=== PATIENT | female | born 1935 | race African-American/Black ===

== ENCOUNTER 2017-03-28 11:53 | Inpatient (IN) ==
[2017-03-28 14:28] LABS: Basophils # 0.1 10*3/uL (0.0-0.2); Basophils % 0.9 % (0.0-0.8); Eosinophils # 0.1 10*3/uL (0.0-0.87); Eosinophils % 1.5 % (0.00-10.9); Hematocrit 44.7 VOL% (35.7-47.0); Hemoglobin 14.2 GM/DL (12.0-16.0); Immature Granulocytes % 0.3 %; Immature Granulocytes Absolute 0.03 #; Lymphocytes # 2.1 10*3/uL (1.4-4.0); Lymphocytes % 23.2 % (21.3-54.2); Mean Corpuscular HGB Conc 31.8 GM/DL (32-36); Mean Corpuscular Hemoglobin 26 PG (27-34); Mean Corpuscular Volume 82.8 FL (87-102); Monocytes # 0.6 10*3/uL (0.11-0.8); Monocytes % 6.5 % (1.7-12.7); Neutrophils # 6.2 10*3/uL (1.4-7.4); Neutrophils % 67.6 % (38.7-73.9); Platelet Count 296 T/CUMM (130-400); Red Cell Distribution Width 15.2 % (9.3-17.3); White Blood Count 9.1 T/CUMM (4-12)
[2017-03-28 14:36] LABS: PT Patient Result 10.2 SECS
[2017-03-28 14:56] LABS: Troponin I Only < 0.015 NG/ML (0.00-0.045)
[2017-03-28 15:07] LABS: Albumin 3.7 G/DL (3.4-5.0); Bilirubin,Total 0.7 MG/DL (0.2-1.0); Osmolality,Calculated 279.3 MOS/KG (273-304); Potassium 4.6 MMOL/L (3.5-5.1); Total Protein 7.3 G/DL (6.4-8.3)
[2017-03-28 15:13] LABS: Apearance,Urine CLEAR (Clear); Bilirubin,Urine Negative (Negative); Blood, Urine Small mg/dL (Negative); Glucose,Urine (UA) Negative (Negative); Ketones,Urine Negative (Negative); Mucus,Urine Occasional /LPF (Occasional); Nitrite,Urine Negative (Negative); Protein,Urine Negative; RBC,Urine 1 /HPF (0-4); Urine Color Yellow (Yellow); Urine Specific Gravity 1.014 (1.001-1.035); Urine Urobilinogen < 2.0 EU/DL (0.2-1.0); WBC,Urine <1 /HPF (0-6)
[2017-03-28] MEDS ORDERED: DEXTROSE 50% 25 GM/50 ML VIAL IV STA (15:14)
[2017-03-28] MEDS ORDERED: DEXTROSE 50% 25 GM/50 ML SYRINGE IV ONE (15:16)
[2017-03-28] MEDS ORDERED: DEXTROSE 50% 25 GM/50 ML VIAL IV PRN (16:08)
[2017-03-28] MEDS ORDERED: diphenhydrAMINE CAP 25 MG CAPSULE PO PRN (16:08)
[2017-03-28] MEDS ORDERED: ACETAMINOPHEN 325 MG TABLET PO PRN (16:08)
[2017-03-28] MEDS ORDERED: MORPHINE 2 MG/1 ML SYRINGE IV PRN (16:08)
[2017-03-28] MEDS ORDERED: LABETALOL 20 MG/4 ML SYRINGE IV PRN (16:08)
[2017-03-28] MEDS ORDERED: guaiFENesin/DM ER 600-30 MG TABLET PO PRN (16:08)
[2017-03-28] MEDS ORDERED: GLUCAGON 1 MG VIAL IM PRN (16:08)
[2017-03-28] MEDS ORDERED: DOCUSATE SODIUM 100 MG CAPSULE PO PRN (16:08)
[2017-03-28] MEDS ORDERED: ONDANSETRON 4 MG/2 ML VIAL IV PRN (16:08)
[2017-03-28] MEDS ORDERED: PANTOPRAZOLE 40 MG TABLET PO SCH (16:30)
[2017-03-28] MEDS ORDERED: CLOPIDOGREL 75 MG TABLET PO SCH (16:30)
[2017-03-28 17:06] LABS: Risk Ratio 2.79; VLDL CHOLESTEROL 23.4 MG/DL
[2017-03-28] MEDS: INSULIN LISPRO 100 UNIT/ML SUBCUT SCH (21:02)
[2017-03-28] MEDS: SODIUM CHLORIDE 0.9% 1,000 ML IV SCH (21:31)
[2017-03-28] MEDS: ASPIRIN EC 81 MG TABLET PO SCH (21:39)
[2017-03-28] MEDS: PANTOPRAZOLE 40 MG TABLET PO SCH (21:40)
[2017-03-28] MEDS: amLODIPine 10 MG TABLET PO SCH (21:40)
[2017-03-28] MEDS: CLOPIDOGREL 75 MG TABLET PO SCH (21:40)
[2017-03-28] MEDS: ATORVASTATIN 40 MG TABLET PO SCH (21:40)
[2017-03-28] MEDS: glipiZIDE 5 MG TABLET PO SCH (21:40)
[2017-03-29] MEDS: SODIUM CHLORIDE 0.9% 1,000 ML IV SCH ×2 (06:05→09:31)
[2017-03-29] MEDS: CLOPIDOGREL 75 MG TABLET PO SCH (09:26)
[2017-03-29] MEDS: amLODIPine 10 MG TABLET PO SCH (09:26)
[2017-03-29] MEDS: glipiZIDE 5 MG TABLET PO SCH (09:26)
[2017-03-29] MEDS: PANTOPRAZOLE 40 MG TABLET PO SCH (09:27)
[2017-03-29] MEDS: ASPIRIN EC 81 MG TABLET PO SCH (09:27)
[2017-03-29] MEDS: INSULIN LISPRO 100 UNIT/ML SUBCUT SCH ×2 (09:31→17:07)
[2017-03-29] MEDS ORDERED: ZINC OXIDE PASTE 113 GM TUBE TOP PRN (14:18)
[2017-03-29] MEDS ORDERED: TUBERCULIN SKIN TEST 0.1 ML SYRINGE INTRADERM ONE (16:00)
[2017-03-29] MEDS: ATORVASTATIN 40 MG TABLET PO SCH (21:18)
[2017-03-30] MEDS: INSULIN LISPRO 100 UNIT/ML SUBCUT SCH ×2 (08:06→16:20)
[2017-03-30] MEDS: CLOPIDOGREL 75 MG TABLET PO SCH (09:16)
[2017-03-30] MEDS: glipiZIDE 5 MG TABLET PO SCH (09:16)
[2017-03-30] MEDS: amLODIPine 10 MG TABLET PO SCH (09:16)
[2017-03-30] MEDS: ASPIRIN EC 81 MG TABLET PO SCH (09:17)
[2017-03-30] MEDS: PANTOPRAZOLE 40 MG TABLET PO SCH (09:17)
[2017-03-30] MEDS ORDERED: glipiZIDE 5 MG TABLET PO SCH (16:30)
[2017-03-30] MEDS: ATORVASTATIN 40 MG TABLET PO SCH (21:27)
[2017-03-31] MEDS ORDERED: glipiZIDE 5 MG TABLET PO SCH (07:30)
[2017-03-31] MEDS: INSULIN LISPRO 100 UNIT/ML SUBCUT SCH (09:12)
[2017-03-31] MEDS: CLOPIDOGREL 75 MG TABLET PO SCH (09:13)
[2017-03-31] MEDS: ASPIRIN EC 81 MG TABLET PO SCH (09:13)
[2017-03-31] MEDS: amLODIPine 10 MG TABLET PO SCH (09:13)
[2017-03-31] MEDS: PANTOPRAZOLE 40 MG TABLET PO SCH (09:13)
[2017-03-31] MEDS ORDERED: LOSARTAN 25 MG TABLET PO SCH (09:30)
[2017-03-31 10:12] VITALS: BP 163/72
== END 2017-03-31 10:56 | disposition swing bed (61) | DRG 123 ==
LOC: N.ED 11:53 → SUATTDRO 16:08 → N.EDINP 16:08 → N.4E 18:12
PROVIDERS: ADMIT Internal Medicine; ATTEND Hospitalist

== ENCOUNTER 2018-05-29 11:58 | Inpatient (IN) ==
[2018-05-29] MEDS ORDERED: NITROGLYCERIN 2% OINT 1 INCH/GM PACK TOP STA (12:37)
[2018-05-29] MEDS ORDERED: ASPIRIN 325 MG TABLET PO STA (12:37)
[2018-05-29 13:07] LABS: INR 0.9; PT Patient Result 9.8 SECS; Partial Thromboplastin Time 24.9 SECS (0-40)
[2018-05-29 13:10] LABS: Albumin 3.4 G/DL (3.4-5.0); Basophils # 0.1 10*3/uL (0.0-0.2); Basophils % 0.4 % (0.0-0.8); Bilirubin,Total 0.5 MG/DL (0.2-1.0); Calcium 9.3 MG/DL (8.5-10.1); Eosinophils % 0.2 % (0.00-10.9); Immature Granulocytes % 0.6 %; Immature Granulocytes Absolute 0.11 #; Lymphocytes # 1.5 10*3/uL (1.4-4.0); Lymphocytes % 8.5 % (21.3-54.2); Mean Corpuscular HGB Conc 27.9 GM/DL (32-36); Mean Corpuscular Hemoglobin 20 PG (27-34); Mean Corpuscular Volume 69.8 FL (87-102); Mean Platelet Volume 9.5 FL (9.6-12.0); Monocytes # 1.3 10*3/uL (0.11-0.8); Monocytes % 7.8 % (1.7-12.7); Neutrophils # 14.2 10*3/uL (1.4-7.4); Neutrophils % 82.5 % (38.7-73.9); Osmolality,Calculated 283.1 MOS/KG (273-304); Platelet Count 554 T/CUMM (130-400); Potassium 4.1 MMOL/L (3.5-5.1); Red Blood Count 4.01 MC/CUMM (3.8-5.5); Red Cell Distribution Width 19.4 % (9.3-17.3); Total Protein 7.2 G/DL (6.4-8.3); White Blood Count 17.2 T/CUMM (4-12)
[2018-05-29 13:19] LABS: Hematocrit 27.3 VOL% (35.7-47.0); Hemoglobin 7.8 GM/DL (12.0-16.0)
[2018-05-29 13:31] LABS: Anisocytosis 1+; Hypochromasia 2+
[2018-05-29 13:32] LABS: Platelet Estimate Increased
[2018-05-29 13:33] LABS: Giant Platelets Few; Ovalocytes 1+; Polychromasia Slight; Schistocytes Few
[2018-05-29 14:11] LABS: % Iron Saturation 3.6 % (18-50); Ferritin 7.8 ng/ml (8-252)
[2018-05-29 14:17] LABS: Folate 14.7 NG/ML (5.4-24.0)
[2018-05-29] MEDS ORDERED: guaiFENesin/DM ER 600-30 MG TABLET PO PRN (15:05)
[2018-05-29] MEDS ORDERED: ONDANSETRON 4 MG/2 ML VIAL IV PRN (15:05)
[2018-05-29] MEDS ORDERED: DEXTROSE 50% 25 GM/50 ML SYRINGE IV PRN (15:05)
[2018-05-29] MEDS ORDERED: GLUCAGON 1 MG VIAL IM PRN (15:05)
[2018-05-29] MEDS ORDERED: BENZONATATE 100 MG CAPSULE PO PRN (15:10)
[2018-05-29] MEDS: SODIUM CHLORIDE 0.9% 1,000 ML IV SCH (17:18)
[2018-05-29] MEDS: INSULIN REGULAR 100 UNIT/ML SUBCUT SCH ×2 (17:18→21:54)
[2018-05-29] MEDS: LEVOFLOXACIN INJ 750 MG in PREMIX 1 EACH IV SCH (17:21)
[2018-05-29] MEDS: ALBUTEROL 2.5 MG/3 ML NEB RESP TX SCH (19:44)
[2018-05-29] MEDS: ATORVASTATIN 40 MG TABLET PO SCH (21:55)
[2018-05-29] MEDS: DOCUSATE SODIUM 100 MG CAPSULE PO SCH (21:56)
[2018-05-30] MEDS: ALBUTEROL 2.5 MG/3 ML NEB RESP TX SCH ×4 (01:59→20:36)
[2018-05-30 05:49] LABS: Calcium 9.1 MG/DL (8.5-10.1); Osmolality,Calculated 275.8 MOS/KG (273-304); Potassium 3.7 MMOL/L (3.5-5.1); Risk Ratio 2.11; Thyroid Stimulating Hormone 0.936 uIU/ml (0.358-3.74)
[2018-05-30 06:06] LABS: Basophils # 0.1 10*3/uL (0.0-0.2); Basophils % 0.4 % (0.0-0.8); Eosinophils # 0.2 10*3/uL (0.0-0.87); Eosinophils % 1.2 % (0.00-10.9); Hematocrit 23.2 VOL% (35.7-47.0); Hemoglobin 6.5 GM/DL (12.0-16.0); Immature Granulocytes % 0.7 %; Immature Granulocytes Absolute 0.11 #; Lymphocytes # 1.8 10*3/uL (1.4-4.0); Lymphocytes % 11.3 % (21.3-54.2); Mean Corpuscular Hemoglobin 19 PG (27-34); Mean Corpuscular Volume 69.3 FL (87-102); Mean Platelet Volume 9.2 FL (9.6-12.0); Monocytes # 1.8 10*3/uL (0.11-0.8); Monocytes % 11.4 % (1.7-12.7); NRBC # 0.02 10*3/uL; Platelet Count 465 T/CUMM (130-400); Red Blood Count 3.35 MC/CUMM (3.8-5.5); Red Cell Distribution Width 19.1 % (9.3-17.3)
[2018-05-30 06:28] LABS: Platelet Estimate Normal; Polychromasia Few
[2018-05-30] MEDS: ALBUTEROL/IPRATROPIUM 3 ML NEB RESP TX PRN ×3 (07:27→19:29)
[2018-05-30 07:31] LABS: Apearance,Urine CLEAR (Clear); Bilirubin,Urine Negative (Negative); Blood, Urine Negative (Negative); Glucose,Urine (UA) 50 mg/dL (Negative); Hyaline Casts,Urine 1 /LPF (0-3); Ketones,Urine Negative (Negative); Mucus,Urine Occasional /LPF (Occasional); Nitrite,Urine Negative (Negative); Protein,Urine Negative; RBC,Urine 1 /HPF (0-4); Squamous Epithelial Cell,Urine Occasional /HPF (0-10); Urine Color Yellow (Yellow); Urine Specific Gravity 1.015 (1.001-1.035); Urine Urobilinogen < 2.0 EU/DL (0.2-1.0); WBC,Urine 16 /HPF (0-6)
[2018-05-30] MEDS ORDERED: CLOPIDOGREL 75 MG TABLET PO SCH (09:00)
[2018-05-30] MEDS ORDERED: amLODIPine 10 MG TABLET PO SCH (09:00)
[2018-05-30] MEDS: DOCUSATE SODIUM 100 MG CAPSULE PO SCH ×2 (09:14→21:32)
[2018-05-30] MEDS: INSULIN REGULAR 100 UNIT/ML SUBCUT SCH ×4 (09:15→21:32)
[2018-05-30] MEDS: INSULIN GLARGINE 100 UNIT/ML SUBCUT SCH (09:15)
[2018-05-30] MEDS: PANTOPRAZOLE 40 MG TABLET PO SCH (09:15)
[2018-05-30] MEDS: ASPIRIN EC 81 MG TABLET PO SCH (09:15)
[2018-05-30] MEDS ORDERED: SODIUM CHLORIDE 0.9% 1,000 ML IV PRN (14:11)
[2018-05-30] MEDS ORDERED: CARVEDILOL 3.125 MG TABLET PO SCH (14:30)
[2018-05-30] MEDS ORDERED: INSULIN GLARGINE 100 UNIT/ML SUBCUT SCH (14:30)
[2018-05-30] MEDS: amLODIPine 5 MG TABLET PO SCH (14:37)
[2018-05-30] MEDS: glipiZIDE 5 MG TABLET PO SCH (15:00)
[2018-05-30] MEDS ORDERED: CARVEDILOL 6.25 MG TABLET PO SCH ×2 (17:24→18:00)
[2018-05-30] MEDS: SODIUM CHLORIDE 0.9% 1,000 ML IV SCH (18:39)
[2018-05-30] MEDS: LEVOFLOXACIN INJ 750 MG in PREMIX 1 EACH IV SCH (21:31)
[2018-05-30] MEDS: CARVEDILOL 6.25 MG TABLET PO SCH (21:32)
[2018-05-30] MEDS: ATORVASTATIN 40 MG TABLET PO SCH (21:32)
[2018-05-31] MEDS: ALBUTEROL 2.5 MG/3 ML NEB RESP TX SCH ×4 (01:16→20:16)
[2018-05-31 07:57] LABS: Basophils # 0.1 10*3/uL (0.0-0.2); Basophils % 0.3 % (0.0-0.8); Eosinophils # 0.2 10*3/uL (0.0-0.87); Eosinophils % 0.8 % (0.00-10.9); Hematocrit 35.2 VOL% (35.7-47.0); Immature Granulocytes % 0.8 %; Immature Granulocytes Absolute 0.16 #; Lymphocytes # 1.3 10*3/uL (1.4-4.0); Lymphocytes % 6.8 % (21.3-54.2); Mean Corpuscular HGB Conc 30.4 GM/DL (32-36); Mean Corpuscular Hemoglobin 22 PG (27-34); Mean Corpuscular Volume 73.8 FL (87-102); Mean Platelet Volume 9.1 FL (9.6-12.0); Monocytes # 1.9 10*3/uL (0.11-0.8); Monocytes % 10.1 % (1.7-12.7); NRBC # 0.03 10*3/uL; Neutrophils # 15.3 10*3/uL (1.4-7.4); Neutrophils % 81.2 % (38.7-73.9); Platelet Count 452 T/CUMM (130-400); Red Cell Distribution Width 21.7 % (9.3-17.3); White Blood Count 18.9 T/CUMM (4-12)
[2018-05-31 08:02] LABS: Hemoglobin 10.7 GM/DL (12.0-16.0); Red Blood Count 4.77 MC/CUMM (3.8-5.5)
[2018-05-31 08:13] LABS: Calcium 9.6 MG/DL (8.5-10.1); Osmolality,Calculated 270.4 MOS/KG (273-304); Potassium 4.1 MMOL/L (3.5-5.1)
[2018-05-31] MEDS: amLODIPine 5 MG TABLET PO SCH (08:59)
[2018-05-31] MEDS: ASPIRIN EC 81 MG TABLET PO SCH (09:00)
[2018-05-31] MEDS: CARVEDILOL 6.25 MG TABLET PO SCH ×2 (09:00→16:41)
[2018-05-31] MEDS: glipiZIDE 5 MG TABLET PO SCH (09:00)
[2018-05-31] MEDS: PANTOPRAZOLE 40 MG TABLET PO SCH (09:00)
[2018-05-31] MEDS: DOCUSATE SODIUM 100 MG CAPSULE PO SCH ×2 (09:01→21:54)
[2018-05-31] MEDS: INSULIN GLARGINE 100 UNIT/ML SUBCUT SCH (09:47)
[2018-05-31] MEDS ORDERED: methylPREDNISolone SOD SUC 40 MG/1 ML VIAL IV ONE (10:43)
[2018-05-31] MEDS ORDERED: FUROSEMIDE 40 MG/4 ML VIAL IV ONE (10:43)
[2018-05-31] MEDS: INSULIN REGULAR 100 UNIT/ML SUBCUT SCH ×4 (11:11→21:54)
[2018-05-31] MEDS ORDERED: FUROSEMIDE 20 MG/2 ML VIAL IV SCH (16:00)
[2018-05-31] MEDS: FUROSEMIDE 40 MG/4 ML VIAL IV SCH (16:38)
[2018-05-31 19:40] LABS: ABG Base Excess -4.5 MMOL/L (-2.5-2.5); ABG HCO3 20.6 MMOL/L (20-26); ABG Oxygen Saturation 94.5 % (95-100); ABG PH 7.385 (7.35-7.45); ABG PO2 71.5 MM HG (80-95)
[2018-05-31] MEDS: ATORVASTATIN 40 MG TABLET PO SCH (21:54)
[2018-05-31] MEDS: methylPREDNISolone SOD SUC 40 MG/1 ML VIAL IV SCH (21:55)
[2018-06-01] MEDS: ALBUTEROL 2.5 MG/3 ML NEB RESP TX SCH ×4 (01:00→20:28)
[2018-06-01] MEDS: methylPREDNISolone SOD SUC 40 MG/1 ML VIAL IV SCH ×3 (03:18→20:44)
[2018-06-01 05:30] LABS: Basophils % 0.1 % (0.0-0.8); Hematocrit 31.5 VOL% (35.7-47.0); Hemoglobin 9.7 GM/DL (12.0-16.0); Immature Granulocytes % 0.7 %; Lymphocytes # 0.8 10*3/uL (1.4-4.0); Lymphocytes % 5.4 % (21.3-54.2); Mean Corpuscular HGB Conc 30.8 GM/DL (32-36); Mean Corpuscular Hemoglobin 22 PG (27-34); Mean Corpuscular Volume 72.6 FL (87-102); Mean Platelet Volume 9.8 FL (9.6-12.0); Monocytes # 0.4 10*3/uL (0.11-0.8); Monocytes % 2.6 % (1.7-12.7); Neutrophils # 13.1 10*3/uL (1.4-7.4); Neutrophils % 91.2 % (38.7-73.9); Platelet Count 470 T/CUMM (130-400); Red Blood Count 4.34 MC/CUMM (3.8-5.5); Red Cell Distribution Width 21.5 % (9.3-17.3); White Blood Count 14.4 T/CUMM (4-12)
[2018-06-01 05:45] LABS: Calcium 9.5 MG/DL (8.5-10.1); Osmolality,Calculated 284.1 MOS/KG (273-304); Potassium 4.1 MMOL/L (3.5-5.1)
[2018-06-01 06:01] LABS: Band Neutrophils 1 % (0-10); Hypochromasia 1+; Lymphocytes 3 % (20-55); Ovalocytes Slight; Platelet Estimate Adequate; Segmented Neutrophils 94 % (50-85); Total Cells Counted 100
[2018-06-01] MEDS: FUROSEMIDE 40 MG/4 ML VIAL IV SCH ×2 (08:51→17:04)
[2018-06-01] MEDS: INSULIN REGULAR 100 UNIT/ML SUBCUT SCH ×4 (08:52→20:45)
[2018-06-01] MEDS: INSULIN GLARGINE 100 UNIT/ML SUBCUT SCH (08:53)
[2018-06-01] MEDS: ASPIRIN EC 81 MG TABLET PO SCH (08:53)
[2018-06-01] MEDS: DOCUSATE SODIUM 100 MG CAPSULE PO SCH ×2 (08:53→20:43)
[2018-06-01] MEDS: AZITHROMYCIN 250 MG TABLET PO SCH (08:53)
[2018-06-01] MEDS: amLODIPine 5 MG TABLET PO SCH (08:53)
[2018-06-01] MEDS: CARVEDILOL 6.25 MG TABLET PO SCH ×2 (08:53→17:04)
[2018-06-01] MEDS: glipiZIDE 5 MG TABLET PO SCH (08:53)
[2018-06-01] MEDS: PANTOPRAZOLE 40 MG TABLET PO SCH (08:53)
[2018-06-01] MEDS: ISOSORBIDE MONONITRATE 30 MG TABLET PO SCH (13:36)
[2018-06-01] MEDS: ATORVASTATIN 40 MG TABLET PO SCH (20:43)
[2018-06-01] MEDS ORDERED: INSULIN GLARGINE 100 UNIT/ML SUBCUT SCH (21:00)
[2018-06-02] MEDS: ALBUTEROL 2.5 MG/3 ML NEB RESP TX SCH ×4 (01:04→19:23)
[2018-06-02] MEDS: methylPREDNISolone SOD SUC 40 MG/1 ML VIAL IV SCH ×2 (04:20→13:16)
[2018-06-02 05:04] LABS: Basophils % 0.2 % (0.0-0.8); Eosinophils % 0.1 % (0.00-10.9); Hematocrit 32.2 VOL% (35.7-47.0); Hemoglobin 9.9 GM/DL (12.0-16.0); Immature Granulocytes Absolute 0.19 #; Lymphocytes # 0.9 10*3/uL (1.4-4.0); Lymphocytes % 4.4 % (21.3-54.2); Mean Corpuscular HGB Conc 30.7 GM/DL (32-36); Mean Corpuscular Hemoglobin 22 PG (27-34); Mean Corpuscular Volume 72.9 FL (87-102); Mean Platelet Volume 9.7 FL (9.6-12.0); Monocytes # 0.7 10*3/uL (0.11-0.8); Monocytes % 3.7 % (1.7-12.7); NRBC # 0.04 10*3/uL; Neutrophils # 18.1 10*3/uL (1.4-7.4); Neutrophils % 90.6 % (38.7-73.9); Platelet Count 568 T/CUMM (130-400); Red Blood Count 4.42 MC/CUMM (3.8-5.5); Red Cell Distribution Width 22.6 % (9.3-17.3)
[2018-06-02 05:11] LABS: Calcium 9.6 MG/DL (8.5-10.1); Osmolality,Calculated 288.8 MOS/KG (273-304); Potassium 3.9 MMOL/L (3.5-5.1)
[2018-06-02 07:10] LABS: Anisocytosis 1+; Band Neutrophils 1 % (0-10); Hypochromasia 1+; Lymphocytes 7 % (20-55); Platelet Estimate Decreased; Segmented Neutrophils 88 % (50-85); Target Cells 1+; Total Cells Counted 100
[2018-06-02] MEDS: DOCUSATE SODIUM 100 MG CAPSULE PO SCH ×2 (09:00→20:39)
[2018-06-02] MEDS: FUROSEMIDE 40 MG/4 ML VIAL IV SCH ×2 (09:00→17:03)
[2018-06-02] MEDS: PANTOPRAZOLE 40 MG TABLET PO SCH (09:01)
[2018-06-02] MEDS: amLODIPine 5 MG TABLET PO SCH (09:01)
[2018-06-02] MEDS: INSULIN REGULAR 100 UNIT/ML SUBCUT SCH ×4 (09:01→20:39)
[2018-06-02] MEDS: glipiZIDE 5 MG TABLET PO SCH (09:01)
[2018-06-02] MEDS: ASPIRIN EC 81 MG TABLET PO SCH (09:01)
[2018-06-02] MEDS: AZITHROMYCIN 250 MG TABLET PO SCH (09:01)
[2018-06-02] MEDS: CARVEDILOL 6.25 MG TABLET PO SCH ×2 (09:01→17:04)
[2018-06-02] MEDS: ISOSORBIDE MONONITRATE 30 MG TABLET PO SCH (09:03)
[2018-06-02] MEDS: INSULIN GLARGINE 100 UNIT/ML SUBCUT SCH (09:03)
[2018-06-02] MEDS: ATORVASTATIN 40 MG TABLET PO SCH (20:39)
[2018-06-03] MEDS: ALBUTEROL 2.5 MG/3 ML NEB RESP TX SCH ×4 (00:03→20:09)
[2018-06-03 04:35] LABS: Basophils % 0.1 % (0.0-0.8); Hematocrit 32.7 VOL% (35.7-47.0); Hemoglobin 9.9 GM/DL (12.0-16.0); Immature Granulocytes % 2.1 %; Immature Granulocytes Absolute 0.44 #; Lymphocytes # 1.4 10*3/uL (1.4-4.0); Mean Corpuscular HGB Conc 30.3 GM/DL (32-36); Mean Corpuscular Hemoglobin 22 PG (27-34); Mean Corpuscular Volume 72.3 FL (87-102); Mean Platelet Volume 9.1 FL (9.6-12.0); Monocytes # 1.8 10*3/uL (0.11-0.8); Monocytes % 8.7 % (1.7-12.7); NRBC # 0.05 10*3/uL; Neutrophils % 82.1 % (38.7-73.9); Platelet Count 568 T/CUMM (130-400); Red Blood Count 4.52 MC/CUMM (3.8-5.5); Red Cell Distribution Width 22.6 % (9.3-17.3); White Blood Count 20.7 T/CUMM (4-12)
[2018-06-03 05:01] LABS: Albumin 2.4 G/DL (3.4-5.0); Bilirubin,Total 0.5 MG/DL (0.2-1.0); Calcium 9.5 MG/DL (8.5-10.1); Osmolality,Calculated 287.7 MOS/KG (273-304); Potassium 3.5 MMOL/L (3.5-5.1); Total Protein 6.2 G/DL (6.4-8.3)
[2018-06-03 06:52] LABS: Eosinophils 1 % (0-10); Hypersegmented Neutrophil Moderate; Lymphocytes 13 % (20-55); Platelet Estimate Increased; Polychromasia Slight; Segmented Neutrophils 86 % (50-85); Total Cells Counted 100
[2018-06-03] MEDS: AZITHROMYCIN 250 MG TABLET PO SCH (08:36)
[2018-06-03] MEDS: INSULIN GLARGINE 100 UNIT/ML SUBCUT SCH (08:37)
[2018-06-03] MEDS: ASPIRIN EC 81 MG TABLET PO SCH (08:37)
[2018-06-03] MEDS: glipiZIDE 5 MG TABLET PO SCH (08:37)
[2018-06-03] MEDS: ISOSORBIDE MONONITRATE 30 MG TABLET PO SCH (08:37)
[2018-06-03] MEDS: DOCUSATE SODIUM 100 MG CAPSULE PO SCH ×2 (08:37→20:35)
[2018-06-03] MEDS: PANTOPRAZOLE 40 MG TABLET PO SCH (08:37)
[2018-06-03] MEDS: CARVEDILOL 6.25 MG TABLET PO SCH ×2 (08:37→16:02)
[2018-06-03] MEDS: amLODIPine 5 MG TABLET PO SCH (08:37)
[2018-06-03] MEDS: INSULIN REGULAR 100 UNIT/ML SUBCUT SCH ×4 (08:38→21:04)
[2018-06-03] MEDS: FUROSEMIDE 40 MG/4 ML VIAL IV SCH ×2 (08:38→15:49)
[2018-06-03] MEDS: CLOPIDOGREL 75 MG TABLET PO SCH (08:44)
[2018-06-03] MEDS: ATORVASTATIN 40 MG TABLET PO SCH (20:35)
[2018-06-04] MEDS: ALBUTEROL 2.5 MG/3 ML NEB RESP TX SCH ×2 (01:13→07:01)
[2018-06-04 05:37] LABS: Basophils % 0.1 % (0.0-0.8); Eosinophils # 0.5 10*3/uL (0.0-0.87); Eosinophils % 2.9 % (0.00-10.9); Hematocrit 35.3 VOL% (35.7-47.0); Hemoglobin 10.5 GM/DL (12.0-16.0); Immature Granulocytes % 0.6 %; Immature Granulocytes Absolute 0.11 #; Lymphocytes # 2.9 10*3/uL (1.4-4.0); Lymphocytes % 16.8 % (21.3-54.2); Mean Corpuscular HGB Conc 29.7 GM/DL (32-36); Mean Corpuscular Hemoglobin 22 PG (27-34); Mean Corpuscular Volume 73.2 FL (87-102); Mean Platelet Volume 9.6 FL (9.6-12.0); Monocytes % 11.7 % (1.7-12.7); NRBC # 0.02 10*3/uL; Neutrophils # 11.5 10*3/uL (1.4-7.4); Neutrophils % 67.9 % (38.7-73.9); Platelet Count 597 T/CUMM (130-400); Red Blood Count 4.82 MC/CUMM (3.8-5.5); Red Cell Distribution Width 23.4 % (9.3-17.3); White Blood Count 16.9 T/CUMM (4-12)
[2018-06-04 05:56] LABS: Albumin 2.4 G/DL (3.4-5.0); Bilirubin,Total 0.6 MG/DL (0.2-1.0); Osmolality,Calculated 290.3 MOS/KG (273-304); Potassium 3.5 MMOL/L (3.5-5.1); Total Protein 6.2 G/DL (6.4-8.3)
[2018-06-04 05:57] LABS: Hypochromasia 1+; Microcytosis 1+; Ovalocytes Slight; Polychromasia Slight; Spherocytes Slight
[2018-06-04 05:58] LABS: Anisocytosis 1+; Platelet Estimate Increased
[2018-06-04 08:32] VITALS: BP 148/73
[2018-06-04] MEDS ORDERED: TUBERCULIN SKIN TEST 0.1 ML SYRINGE INTRADERM ONE (09:00)
[2018-06-04] MEDS: INSULIN REGULAR 100 UNIT/ML SUBCUT SCH (09:11)
[2018-06-04] MEDS: CARVEDILOL 6.25 MG TABLET PO SCH (09:11)
[2018-06-04] MEDS: glipiZIDE 5 MG TABLET PO SCH (09:12)
[2018-06-04] MEDS: ASPIRIN EC 81 MG TABLET PO SCH (09:12)
[2018-06-04] MEDS: DOCUSATE SODIUM 100 MG CAPSULE PO SCH (09:12)
[2018-06-04] MEDS: AZITHROMYCIN 250 MG TABLET PO SCH (09:12)
[2018-06-04] MEDS: ISOSORBIDE MONONITRATE 30 MG TABLET PO SCH (09:13)
[2018-06-04] MEDS: amLODIPine 5 MG TABLET PO SCH (09:14)
[2018-06-04] MEDS: CLOPIDOGREL 75 MG TABLET PO SCH (09:14)
[2018-06-04] MEDS: INSULIN GLARGINE 100 UNIT/ML SUBCUT SCH (09:16)
[2018-06-04] MEDS: FUROSEMIDE 40 MG/4 ML VIAL IV SCH (09:19)
[2018-06-04] MEDS: PANTOPRAZOLE 40 MG TABLET PO SCH (09:19)
== END 2018-06-04 11:55 | disposition swing bed (61) | DRG 811 ==
LOC: N.ED 11:58 → N.EDINP 15:05 → SUATTDRO 15:05 → N.TELEN 16:37
PROVIDERS: ADMIT Internal Medicine; ATTEND Internal Medicine Geriatric Medicine

== ENCOUNTER 2018-09-20 09:17 | Inpatient (IN) ==
[2018-09-20] MEDS ORDERED: MAGNESIUM SULF RIDER 4 GM in PREMIX 1 EACH IV PRN (10:22)
[2018-09-20] MEDS ORDERED: ONDANSETRON 4 MG/2 ML VIAL IV PRN (10:22)
[2018-09-20] MEDS ORDERED: MAGNESIUM SULF RIDER 2 GM in PREMIX 1 EACH IV PRN (10:22)
[2018-09-20] MEDS ORDERED: ZALEPLON 5 MG CAPSULE PO PRN (10:22)
[2018-09-20] MEDS ORDERED: DOCUSATE SODIUM 100 MG CAPSULE PO PRN (10:22)
[2018-09-20] MEDS ORDERED: PANTOPRAZOLE 40 MG TABLET PO SCH (10:30)
[2018-09-20] MEDS ORDERED: ENOXAPARIN 40 MG/0.4 ML SYRINGE SUBCUT SCH (10:30)
[2018-09-20 15:05] LABS: Basophils # 0.1 10*3/uL (0.0-0.2); Basophils % 0.2 % (0.0-0.8); Eosinophils # 0.2 10*3/uL (0.0-0.87); Eosinophils % 0.8 % (0.00-10.9); Hematocrit 29.6 VOL% (35.7-47.0); Hemoglobin 9.2 GM/DL (12.0-16.0); Immature Granulocytes % 1.6 %; Immature Granulocytes Absolute 0.33 #; Lymphocytes # 1.1 10*3/uL (1.4-4.0); Lymphocytes % 5.2 % (21.3-54.2); Mean Corpuscular HGB Conc 31.1 GM/DL (32-36); Mean Corpuscular Volume 70.3 FL (87-102); Mean Platelet Volume 9.8 FL (9.6-12.0); Monocytes % 6.5 % (1.7-12.7); NRBC # 0.45 10*3/uL; Neutrophils % 85.7 % (38.7-73.9); Platelet Count 190 T/CUMM (130-400); Red Blood Count 4.21 MC/CUMM (3.8-5.5); Red Cell Distribution Width 19.3 % (9.3-17.3); White Blood Count 20.8 T/CUMM (4-12)
[2018-09-20 15:30] LABS: Albumin 2.8 G/DL (3.4-5.0); Bilirubin,Total 0.8 MG/DL (0.2-1.0); Osmolality,Calculated 286.2 MOS/KG (273-304); Total Protein 6.5 G/DL (6.4-8.3)
[2018-09-20 15:33] LABS: Troponin I 0.366 NG/ML (0.00-0.045)
[2018-09-20 15:36] LABS: Acanthocytes Few; Lymphocytes 2 % (20-55); Nucleated Red Blood Cells 5 (0-5); Polychromasia 1+; Segmented Neutrophils 89 % (50-85); Total Cells Counted 100
[2018-09-20 17:45] LABS: Apearance,Urine CLEAR (Clear); Bilirubin,Urine Negative (Negative); Blood, Urine Small mg/dL (Negative); Glucose,Urine (UA) Negative (Negative); Ketones,Urine Negative (Negative); Mucus,Urine Occasional /LPF (Occasional); Nitrite,Urine Negative (Negative); Protein,Urine Negative; RBC,Urine 2 /HPF (0-4); Squamous Epithelial Cell,Urine Occasional /HPF (0-10); Urine Color Straw (Yellow); Urine Specific Gravity 1.009 (1.001-1.035); Urine Urobilinogen < 2.0 EU/DL (0.2-1.0); WBC,Urine 1 /HPF (0-6)
[2018-09-20] MEDS ORDERED: GLUCAGON 1 MG VIAL SUBCUT PRN (18:12)
[2018-09-20] MEDS ORDERED: DEXTROSE 50% 25 GM/50 ML SYRINGE IV ONE (18:15)
[2018-09-20] MEDS: DEXTROSE 5% NACL 0.45% 1,000 ML IV SCH (18:23)
[2018-09-20] MEDS: DEXTROSE 50% 25 GM/50 ML SYRINGE IV PRN (18:23)
[2018-09-20] MEDS: PROPOFOL 1,000 MG/100 ML BOTTLE IV SCH ×2 (18:34→19:32)
[2018-09-20 19:51] LABS: Troponin I 0.268 NG/ML (0.00-0.045)
[2018-09-20] MEDS: LINEZOLID INJ 600 MG in PREMIX 1 EACH IV SCH (20:00)
[2018-09-20] MEDS: INSULIN LISPRO 100 UNIT/ML SUBCUT SCH (20:42)
[2018-09-20] MEDS ORDERED: CARVEDILOL 6.25 MG TABLET PO SCH (21:00)
[2018-09-21 03:35] LABS: ABG Base Excess 1.2 MMOL/L (-2.5-2.5); ABG HCO3 25.5 MMOL/L (20-26); ABG Oxygen Saturation 99.7 % (95-100); ABG PCO2 26.1 MM HG (35-48); ABG PH 7.551 (7.35-7.45); Allen Test Positive; Pt O2 Delivery Device Ventilator
[2018-09-21 05:57] LABS: Basophils % 0.2 % (0.0-0.8); Eosinophils # 0.3 10*3/uL (0.0-0.87); Eosinophils % 1.6 % (0.00-10.9); Hematocrit 25.2 VOL% (35.7-47.0); Hemoglobin 8.1 GM/DL (12.0-16.0); Immature Granulocytes % 0.9 %; Immature Granulocytes Absolute 0.15 #; Lymphocytes # 1.4 10*3/uL (1.4-4.0); Lymphocytes % 8.5 % (21.3-54.2); Mean Corpuscular HGB Conc 32.1 GM/DL (32-36); Mean Corpuscular Volume 69.6 FL (87-102); Mean Platelet Volume 9.5 FL (9.6-12.0); Monocytes % 7.1 % (1.7-12.7); NRBC # 0.41 10*3/uL; Neutrophils % 81.7 % (38.7-73.9); Platelet Count 158 T/CUMM (130-400); Red Blood Count 3.62 MC/CUMM (3.8-5.5); Red Cell Distribution Width 19.1 % (9.3-17.3); White Blood Count 16.2 T/CUMM (4-12)
[2018-09-21 06:14] LABS: Calcium 8.5 MG/DL (8.5-10.1); Osmolality,Calculated 283.8 MOS/KG (273-304); Risk Ratio 2.11; VLDL CHOLESTEROL 14.6 MG/DL
[2018-09-21 06:16] LABS: Troponin I 0.227 NG/ML (0.00-0.045)
[2018-09-21 06:18] LABS: Albumin 2.2 G/DL (3.4-5.0); Bilirubin,Direct 0.3 MG/DL (0.0-0.20); Bilirubin,Indirect 1.1 MG/DL (0.0-1.0); Bilirubin,Total 1.4 MG/DL (0.2-1.0); Total Protein 5.4 G/DL (6.4-8.3)
[2018-09-21] MEDS: PROPOFOL 1,000 MG/100 ML BOTTLE IV SCH ×2 (06:39→17:58)
[2018-09-21] MEDS: INSULIN LISPRO 100 UNIT/ML SUBCUT SCH ×3 (07:30→15:50)
[2018-09-21] MEDS: DEXTROSE 5% NACL 0.45% 1,000 ML IV SCH (07:45)
[2018-09-21 08:49] LABS: Hepatitis B Core IgM Quant 0.21 Index; Hepatitis B Surface Ag Quant < 0.10 Index; Hepatitis B Surface Ag Result Negative (Negative); Hepatitis C Virus Ab Quant 0.06 Index; Hepatitis C Virus Ab Result Negative (Negative)
[2018-09-21] MEDS: LINEZOLID INJ 600 MG in PREMIX 1 EACH IV SCH ×2 (09:30→21:02)
[2018-09-21] MEDS: POTASSIUM CHLORIDE 20 MEQ TABLET PO PRN ×2 (09:40→12:26)
[2018-09-21] MEDS: LANSOPRAZOLE ODT 30 MG TABLET PO SCH (09:40)
[2018-09-21] MEDS: ASPIRIN EC 81 MG TABLET PO SCH (09:40)
[2018-09-21] MEDS: DEXTROSE 50% 25 GM/50 ML SYRINGE IV PRN (17:45)
[2018-09-22] MEDS: INSULIN LISPRO 100 UNIT/ML SUBCUT SCH ×4 (00:39→19:18)
[2018-09-22] MEDS: DEXTROSE 5% NACL 0.45% 1,000 ML IV SCH ×2 (00:40→12:08)
[2018-09-22 04:27] LABS: ABG HCO3 22.1 MMOL/L (20-26); ABG Oxygen Saturation 98.6 % (95-100); ABG PCO2 31.1 MM HG (35-48); ABG PO2 161.7 MM HG (80-95); ABG TCO2 23.1 MMOL/L (23-27); Pt O2 Delivery Device Ventilator
[2018-09-22 05:05] LABS: Basophils % 0.3 % (0.0-0.8); Eosinophils # 0.6 10*3/uL (0.0-0.87); Eosinophils % 3.8 % (0.00-10.9); Hematocrit 30.3 VOL% (35.7-47.0); Hemoglobin 9.2 GM/DL (12.0-16.0); Immature Granulocytes % 0.6 %; Immature Granulocytes Absolute 0.09 #; Lymphocytes # 1.8 10*3/uL (1.4-4.0); Lymphocytes % 11.8 % (21.3-54.2); Mean Corpuscular HGB Conc 30.4 GM/DL (32-36); Mean Platelet Volume 9.7 FL (9.6-12.0); Monocytes % 9.7 % (1.7-12.7); NRBC # 0.16 10*3/uL; Neutrophils % 73.8 % (38.7-73.9); Platelet Count 207 T/CUMM (130-400); Red Blood Count 4.21 MC/CUMM (3.8-5.5); White Blood Count 15.4 T/CUMM (4-12)
[2018-09-22 05:37] LABS: Osmolality,Calculated 282.4 MOS/KG (273-304)
[2018-09-22 06:01] LABS: Albumin 2.3 G/DL (3.4-5.0); Bilirubin,Direct 0.31 MG/DL (0.0-0.20); Bilirubin,Indirect 0.7 MG/DL (0.0-1.0); Total Protein 5.9 G/DL (6.4-8.3)
[2018-09-22] MEDS: PROPOFOL 1,000 MG/100 ML BOTTLE IV SCH ×3 (08:45→21:54)
[2018-09-22] MEDS: amLODIPine 5 MG TABLET PO SCH (10:29)
[2018-09-22] MEDS: ASPIRIN EC 81 MG TABLET PO SCH (10:29)
[2018-09-22] MEDS: CARVEDILOL 3.125 MG TABLET PO SCH ×2 (10:29→17:00)
[2018-09-22] MEDS: LANSOPRAZOLE ODT 30 MG TABLET PO SCH (10:30)
[2018-09-22] MEDS: LINEZOLID INJ 600 MG in PREMIX 1 EACH IV SCH ×2 (10:42→21:52)
[2018-09-22] MEDS ORDERED: FUROSEMIDE 40 MG/4 ML VIAL IV ONE (15:30)
[2018-09-23] MEDS: INSULIN LISPRO 100 UNIT/ML SUBCUT SCH ×5 (00:30→23:38)
[2018-09-23 04:27] LABS: ABG Base Excess 0.2 MMOL/L (-2.5-2.5); ABG HCO3 24.6 MMOL/L (20-26); ABG Oxygen Saturation 98.3 % (95-100); ABG PCO2 30.9 MM HG (35-48); ABG PH 7.481 (7.35-7.45); Allen Test Positive; Pt O2 Delivery Device Ventilator
[2018-09-23 05:28] LABS: Basophils # 0.1 10*3/uL (0.0-0.2); Basophils % 0.4 % (0.0-0.8); Eosinophils # 0.6 10*3/uL (0.0-0.87); Eosinophils % 4.7 % (0.00-10.9); Hematocrit 29.6 VOL% (35.7-47.0); Hemoglobin 8.8 GM/DL (12.0-16.0); Immature Granulocytes % 0.5 %; Immature Granulocytes Absolute 0.07 #; Lymphocytes % 14.8 % (21.3-54.2); Mean Corpuscular HGB Conc 29.7 GM/DL (32-36); Mean Corpuscular Volume 73.4 FL (87-102); Mean Platelet Volume 10.3 FL (9.6-12.0); NRBC # 0.08 10*3/uL; Neutrophils % 70.6 % (38.7-73.9); Platelet Count 218 T/CUMM (130-400); Red Blood Count 4.03 MC/CUMM (3.8-5.5); Red Cell Distribution Width 20.3 % (9.3-17.3); White Blood Count 13.4 T/CUMM (4-12)
[2018-09-23 05:47] LABS: Calcium 9.1 MG/DL (8.5-10.1); Osmolality,Calculated 282.3 MOS/KG (273-304)
[2018-09-23 06:20] LABS: Anisocytosis 1+; Burr Cells 1+; Hypochromasia 1+; Macrocytosis 1+; Microcytosis 1+; Ovalocytes 1+; Platelet Estimate Adequate; Polychromasia 1+
[2018-09-23] MEDS: CARVEDILOL 3.125 MG TABLET PO SCH ×2 (09:15→17:00)
[2018-09-23] MEDS: amLODIPine 5 MG TABLET PO SCH (09:15)
[2018-09-23] MEDS: ASPIRIN EC 81 MG TABLET PO SCH (09:16)
[2018-09-23] MEDS: LANSOPRAZOLE ODT 30 MG TABLET PO SCH (09:16)
[2018-09-23] MEDS: LINEZOLID INJ 600 MG in PREMIX 1 EACH IV SCH ×2 (09:45→20:19)
[2018-09-23] MEDS: FUROSEMIDE 40 MG/4 ML VIAL IV SCH ×2 (16:50→20:20)
[2018-09-23] MEDS: AZTREONAM 1,000 MG in SYRINGE 1 EACH IV SCH ×2 (16:53→23:38)
[2018-09-23] MEDS: LEVOFLOXACIN INJ 750 MG in PREMIX 1 EACH IV SCH (17:00)
[2018-09-23] MEDS: PROPOFOL 1,000 MG/100 ML BOTTLE IV SCH (18:09)
[2018-09-24 03:38] LABS: Basophils % 0.2 % (0.0-0.8); Eosinophils # 0.2 10*3/uL (0.0-0.87); Eosinophils % 1.4 % (0.00-10.9); Hematocrit 31.3 VOL% (35.7-47.0); Hemoglobin 9.2 GM/DL (12.0-16.0); Immature Granulocytes % 0.7 %; Immature Granulocytes Absolute 0.09 #; Lymphocytes # 1.3 10*3/uL (1.4-4.0); Lymphocytes % 10.9 % (21.3-54.2); Mean Corpuscular HGB Conc 29.4 GM/DL (32-36); Mean Corpuscular Volume 73.5 FL (87-102); Mean Platelet Volume 9.3 FL (9.6-12.0); Monocytes % 5.8 % (1.7-12.7); NRBC # 0.04 10*3/uL; Platelet Count 283 T/CUMM (130-400); Red Blood Count 4.26 MC/CUMM (3.8-5.5); Red Cell Distribution Width 20.6 % (9.3-17.3); White Blood Count 12.3 T/CUMM (4-12)
[2018-09-24 04:05] LABS: Calcium 8.9 MG/DL (8.5-10.1); Osmolality,Calculated 276.8 MOS/KG (273-304); Prealbumin 14.1 MG/DL (20-40)
[2018-09-24 04:18] LABS: ABG Base Excess 0.3 MMOL/L (-2.5-2.5); ABG HCO3 24.7 MMOL/L (20-26); ABG Oxygen Saturation 99.8 % (95-100); ABG PH 7.535 (7.35-7.45); Allen Test Positive; Pt O2 Delivery Device Ventilator
[2018-09-24] MEDS: INSULIN LISPRO 100 UNIT/ML SUBCUT SCH ×4 (06:32→20:34)
[2018-09-24] MEDS: LINEZOLID INJ 600 MG in PREMIX 1 EACH IV SCH ×2 (07:47→19:30)
[2018-09-24] MEDS: CARVEDILOL 3.125 MG TABLET PO SCH ×2 (07:50→18:59)
[2018-09-24] MEDS: AZTREONAM 1,000 MG in SYRINGE 1 EACH IV SCH ×2 (07:51→16:29)
[2018-09-24] MEDS: FUROSEMIDE 40 MG/4 ML VIAL IV SCH ×3 (07:59→20:17)
[2018-09-24] MEDS: LANSOPRAZOLE ODT 30 MG TABLET PO SCH (08:20)
[2018-09-24] MEDS: ASPIRIN EC 81 MG TABLET PO SCH (08:20)
[2018-09-24] MEDS: amLODIPine 5 MG TABLET PO SCH (08:21)
[2018-09-24 11:57] LABS: ABG Base Excess -0.2 MMOL/L (-2.5-2.5); ABG HCO3 23.7 MMOL/L (20-26); ABG Oxygen Saturation 98.5 % (95-100); ABG PCO2 35.6 MM HG (35-48); ABG PH 7.441 (7.35-7.45); ABG PO2 150.9 MM HG (80-95); ABG TCO2 24.8 MMOL/L (23-27); Pt O2 Delivery Device Ventilator
[2018-09-24] MEDS: LEVOFLOXACIN INJ 750 MG in PREMIX 1 EACH IV SCH (16:30)
[2018-09-24] MEDS ORDERED: DEXTROSE 50% 25 GM/50 ML SYRINGE IV PRN (16:42)
[2018-09-24] MEDS: PROPOFOL 1,000 MG/100 ML BOTTLE IV SCH (17:40)
[2018-09-24] MEDS ORDERED: INSULIN REGULAR 100 UNIT/ML ONE (20:31)
[2018-09-25] MEDS: AZTREONAM 1,000 MG in SYRINGE 1 EACH IV SCH ×4 (00:19→23:40)
[2018-09-25 04:45] LABS: Basophils % 0.3 % (0.0-0.8); Eosinophils # 0.3 10*3/uL (0.0-0.87); Eosinophils % 3.3 % (0.00-10.9); Hematocrit 31.9 VOL% (35.7-47.0); Hemoglobin 9.5 GM/DL (12.0-16.0); Immature Granulocytes % 0.5 %; Immature Granulocytes Absolute 0.05 #; Lymphocytes # 1.3 10*3/uL (1.4-4.0); Lymphocytes % 12.4 % (21.3-54.2); Mean Corpuscular HGB Conc 29.8 GM/DL (32-36); Mean Corpuscular Volume 73.5 FL (87-102); Mean Platelet Volume 9.4 FL (9.6-12.0); Monocytes % 7.4 % (1.7-12.7); NRBC # 0.03 10*3/uL; Neutrophils % 76.1 % (38.7-73.9); Platelet Count 277 T/CUMM (130-400); Red Blood Count 4.34 MC/CUMM (3.8-5.5); Red Cell Distribution Width 20.7 % (9.3-17.3); White Blood Count 10.3 T/CUMM (4-12)
[2018-09-25 04:49] LABS: Calcium 9.4 MG/DL (8.5-10.1); Osmolality,Calculated 272.1 MOS/KG (273-304)
[2018-09-25] MEDS: INSULIN LISPRO 100 UNIT/ML SUBCUT SCH ×4 (09:38→20:27)
[2018-09-25] MEDS: LINEZOLID INJ 600 MG in PREMIX 1 EACH IV SCH ×2 (09:55→20:22)
[2018-09-25] MEDS: FUROSEMIDE 40 MG/4 ML VIAL IV SCH ×3 (10:06→20:28)
[2018-09-25] MEDS: CARVEDILOL 3.125 MG TABLET PO SCH ×2 (10:08→18:56)
[2018-09-25] MEDS: LANSOPRAZOLE ODT 30 MG TABLET PO SCH (10:09)
[2018-09-25] MEDS: amLODIPine 5 MG TABLET PO SCH (10:09)
[2018-09-25] MEDS: ASPIRIN EC 81 MG TABLET PO SCH (10:09)
[2018-09-25] MEDS: LEVOFLOXACIN INJ 750 MG in PREMIX 1 EACH IV SCH (16:53)
[2018-09-26 05:34] LABS: Basophils % 0.3 % (0.0-0.8); Eosinophils # 0.5 10*3/uL (0.0-0.87); Eosinophils % 4.2 % (0.00-10.9); Hematocrit 28.7 VOL% (35.7-47.0); Hemoglobin 8.7 GM/DL (12.0-16.0); Immature Granulocytes % 0.5 %; Immature Granulocytes Absolute 0.05 #; Lymphocytes # 1.7 10*3/uL (1.4-4.0); Lymphocytes % 15.9 % (21.3-54.2); Mean Corpuscular HGB Conc 30.3 GM/DL (32-36); Mean Corpuscular Volume 72.5 FL (87-102); Mean Platelet Volume 8.9 FL (9.6-12.0); Monocytes % 6.2 % (1.7-12.7); Neutrophils % 72.9 % (38.7-73.9); Platelet Count 266 T/CUMM (130-400); Red Blood Count 3.96 MC/CUMM (3.8-5.5); Red Cell Distribution Width 20.6 % (9.3-17.3); White Blood Count 10.8 T/CUMM (4-12)
[2018-09-26 05:51] LABS: Calcium 9.7 MG/DL (8.5-10.1); Osmolality,Calculated 269.4 MOS/KG (273-304)
[2018-09-26 05:54] LABS: Albumin 2.4 G/DL (3.4-5.0); Bilirubin,Direct 0.16 MG/DL (0.0-0.20); Bilirubin,Indirect 0.3 MG/DL (0.0-1.0); Bilirubin,Total 0.5 MG/DL (0.2-1.0); Total Protein 6.3 G/DL (6.4-8.3)
[2018-09-26] MEDS ORDERED: LACTATED RINGERS 500 ML IV SCH (08:00)
[2018-09-26] MEDS: INSULIN LISPRO 100 UNIT/ML SUBCUT SCH ×4 (08:43→22:04)
[2018-09-26] MEDS: LANSOPRAZOLE ODT 30 MG TABLET PO SCH (09:00)
[2018-09-26] MEDS: amLODIPine 5 MG TABLET PO SCH (09:00)
[2018-09-26] MEDS: CARVEDILOL 3.125 MG TABLET PO SCH ×2 (09:00→16:16)
[2018-09-26] MEDS: ASPIRIN EC 81 MG TABLET PO SCH (09:00)
[2018-09-26] MEDS: LINEZOLID INJ 600 MG in PREMIX 1 EACH IV SCH ×2 (09:03→21:48)
[2018-09-26] MEDS: FUROSEMIDE 40 MG/4 ML VIAL IV SCH ×3 (09:08→21:50)
[2018-09-26] MEDS ORDERED: PROPOFOL 200 MG/20 ML VIAL IV ONE (10:00)
[2018-09-26] MEDS ORDERED: LIDOCAINE 2% 5 ML VIAL ONE (10:00)
[2018-09-26] MEDS: AZTREONAM 1,000 MG in SYRINGE 1 EACH IV SCH ×2 (13:48→21:56)
[2018-09-26] MEDS: LEVOFLOXACIN INJ 750 MG in PREMIX 1 EACH IV SCH (14:43)
[2018-09-26] MEDS ORDERED: MAGNESIUM CITRATE 300 ML BOTTLE PO ONE (20:51)
[2018-09-27 05:09] LABS: Basophils # 0.1 10*3/uL (0.0-0.2); Basophils % 0.5 % (0.0-0.8); Eosinophils # 0.6 10*3/uL (0.0-0.87); Eosinophils % 5.2 % (0.00-10.9); Hematocrit 28.1 VOL% (35.7-47.0); Hemoglobin 8.3 GM/DL (12.0-16.0); Immature Granulocytes % 0.5 %; Immature Granulocytes Absolute 0.05 #; Lymphocytes # 2.2 10*3/uL (1.4-4.0); Lymphocytes % 19.9 % (21.3-54.2); Mean Corpuscular HGB Conc 29.5 GM/DL (32-36); Mean Corpuscular Volume 74.1 FL (87-102); Mean Platelet Volume 8.5 FL (9.6-12.0); Neutrophils % 66.9 % (38.7-73.9); Platelet Count 258 T/CUMM (130-400); Red Blood Count 3.79 MC/CUMM (3.8-5.5); Red Cell Distribution Width 20.4 % (9.3-17.3); White Blood Count 10.9 T/CUMM (4-12)
[2018-09-27 05:23] LABS: Calcium 9.9 MG/DL (8.5-10.1)
[2018-09-27] MEDS: AZTREONAM 1,000 MG in SYRINGE 1 EACH IV SCH ×3 (05:23→22:23)
[2018-09-27 05:26] LABS: Prealbumin 20.9 MG/DL (20-40)
[2018-09-27] MEDS: INSULIN LISPRO 100 UNIT/ML SUBCUT SCH ×4 (08:10→22:19)
[2018-09-27] MEDS: LINEZOLID INJ 600 MG in PREMIX 1 EACH IV SCH ×2 (08:35→22:26)
[2018-09-27] MEDS: amLODIPine 5 MG TABLET PO SCH (08:37)
[2018-09-27] MEDS: FUROSEMIDE 40 MG/4 ML VIAL IV SCH ×3 (08:37→22:19)
[2018-09-27] MEDS: LANSOPRAZOLE ODT 30 MG TABLET PO SCH (08:37)
[2018-09-27] MEDS: CARVEDILOL 3.125 MG TABLET PO SCH ×2 (08:37→16:37)
[2018-09-27] MEDS: ASPIRIN EC 81 MG TABLET PO SCH (08:38)
[2018-09-27] MEDS ORDERED: BISACODYL 5 MG TABLET PO ONE (12:00)
[2018-09-27] MEDS ORDERED: POLYETHYLENE GLYCOL POWDER 255 GM BOTTLE PO ONE (14:00)
[2018-09-27] MEDS: LEVOFLOXACIN INJ 750 MG in PREMIX 1 EACH IV SCH (16:00)
[2018-09-28 05:02] LABS: PT Patient Result 10.7 SECS
[2018-09-28] MEDS: AZTREONAM 1,000 MG in SYRINGE 1 EACH IV SCH ×2 (05:08→12:37)
[2018-09-28] MEDS ORDERED: LACTATED RINGERS 500 ML IV SCH (08:00)
[2018-09-28] MEDS ORDERED: LACTATED RINGERS 1,000 ML IV SCH (08:00)
[2018-09-28 08:03] LABS: Basophils # 0.1 10*3/uL (0.0-0.2); Basophils % 0.5 % (0.0-0.8); Eosinophils # 0.7 10*3/uL (0.0-0.87); Eosinophils % 7.2 % (0.00-10.9); Hematocrit 31.3 VOL% (35.7-47.0); Hemoglobin 9.4 GM/DL (12.0-16.0); Immature Granulocytes % 0.5 %; Immature Granulocytes Absolute 0.05 #; Lymphocytes % 21.1 % (21.3-54.2); Mean Platelet Volume 9.2 FL (9.6-12.0); Monocytes % 7.8 % (1.7-12.7); Neutrophils % 62.9 % (38.7-73.9); Platelet Count 304 T/CUMM (130-400); Red Blood Count 4.23 MC/CUMM (3.8-5.5); Red Cell Distribution Width 20.5 % (9.3-17.3); White Blood Count 9.4 T/CUMM (4-12)
[2018-09-28 08:16] LABS: Calcium 10.1 MG/DL (8.5-10.1)
[2018-09-28] MEDS: SODIUM PHOSPHATE ENEMA 133 ML BOTTLE RECTAL PRN ×2 (08:20→09:34)
[2018-09-28] MEDS: LINEZOLID INJ 600 MG in PREMIX 1 EACH IV SCH (10:53)
[2018-09-28] MEDS: FUROSEMIDE 40 MG/4 ML VIAL IV SCH ×2 (10:54→14:59)
[2018-09-28 12:14] VITALS: BP 112/47
[2018-09-28] MEDS: CARVEDILOL 3.125 MG TABLET PO SCH ×2 (12:36→16:52)
[2018-09-28] MEDS: ASPIRIN EC 81 MG TABLET PO SCH (12:36)
[2018-09-28] MEDS: LANSOPRAZOLE ODT 30 MG TABLET PO SCH (12:37)
[2018-09-28] MEDS: amLODIPine 5 MG TABLET PO SCH (12:37)
[2018-09-28] MEDS: LEVOFLOXACIN INJ 750 MG in PREMIX 1 EACH IV SCH (15:00)
[2018-09-28] MEDS: INSULIN LISPRO 100 UNIT/ML SUBCUT SCH ×2 (16:51→16:52)
[2018-09-30] MEDS ORDERED: POLYETHYLENE GLYCOL POWDER 255 GM BOTTLE PO ONE (18:00)
== END 2018-09-28 18:15 | DRG 871 ==
LOC: N.CC 14:28 → INTOOBSV 14:28 → N.TELEN 09-26 06:39
PROVIDERS: ADMIT Internal Medicine Interventional Cardiology; ATTEND Internal Medicine Interventional Cardiology

== ENCOUNTER 2018-11-29 20:06 | Inpatient (IN) ==
[2018-11-29] MEDS ORDERED: VANCOMYCIN INJ 1,000 MG in SODIUM CHLORIDE 0.9% 250 ML IV STA (22:47)
[2018-11-29 23:31] LABS: Basophils # 0.1 10*3/uL (0.0-0.2); Basophils % 0.7 % (0.0-0.8); Eosinophils # 0.3 10*3/uL (0.0-0.87); Eosinophils % 2.4 % (0.00-10.9); Immature Granulocytes % 0.3 %; Immature Granulocytes Absolute 0.04 #; Lymphocytes # 2.4 10*3/uL (1.4-4.0); Lymphocytes % 21.2 % (21.3-54.2); Mean Corpuscular HGB Conc 29.7 GM/DL (32-36); Mean Corpuscular Volume 86.2 FL (87-102); Mean Platelet Volume 9.3 FL (9.6-12.0); Monocytes % 6.3 % (1.7-12.7); Neutrophils % 69.1 % (38.7-73.9); Platelet Count 363 T/CUMM (130-400); Red Blood Count 5.66 MC/CUMM (3.8-5.5); Red Cell Distribution Width 16.1 % (9.3-17.3); White Blood Count 11.5 T/CUMM (4-12)
[2018-11-29 23:35] LABS: Hematocrit 48.2 VOL% (35.7-47.0)
[2018-11-29 23:36] LABS: Hemoglobin 14.5 GM/DL (12.0-16.0)
[2018-11-29 23:51] LABS: Albumin 3.6 G/DL (3.4-5.0); Bilirubin,Total 0.6 MG/DL (0.2-1.0); Calcium 10.9 MG/DL (8.5-10.1); Osmolality,Calculated 285.8 MOS/KG (273-304); Total Protein 8.5 G/DL (6.4-8.3)
[2018-11-30] MEDS ORDERED: INSULIN REGULAR 100 UNIT/ML SUBCUT STA
[2018-11-30] MEDS ORDERED: ONDANSETRON 4 MG/2 ML VIAL IV PRN (02:55)
[2018-11-30] MEDS ORDERED: SODIUM CHLORIDE 0.9% 1,000 ML IV SCH (02:55)
[2018-11-30] MEDS ORDERED: GLUCAGON 1 MG VIAL IM PRN (02:55)
[2018-11-30] MEDS ORDERED: DEXTROSE 50% 25 GM/50 ML VIAL IV PRN (02:55)
[2018-11-30] MEDS: AZTREONAM 2,000 MG in SYRINGE 1 EACH IV SCH ×3 (03:48→19:51)
[2018-11-30] MEDS: INSULIN REGULAR 100 UNIT/ML SUBCUT SCH ×5 (05:38→21:54)
[2018-11-30] MEDS: ENOXAPARIN 40 MG/0.4 ML SYRINGE SUBCUT SCH (08:55)
[2018-11-30] MEDS: INSULIN GLARGINE 100 UNIT/ML SUBCUT SCH (12:12)
[2018-11-30] MEDS: metroNIDAZOLE INJ 500 MG in PREMIX 1 EACH IV SCH ×2 (13:34→21:56)
[2018-11-30] MEDS: VANCOMYCIN INJ 1,250 MG in SODIUM CHLORIDE 0.9% 250 ML IV SCH (16:52)
[2018-12-01] MEDS: AZTREONAM 2,000 MG in SYRINGE 1 EACH IV SCH ×3 (03:41→18:07)
[2018-12-01] MEDS: metroNIDAZOLE INJ 500 MG in PREMIX 1 EACH IV SCH ×3 (06:01→21:03)
[2018-12-01 06:46] LABS: Calcium 10.4 MG/DL (8.5-10.1); Osmolality,Calculated 285.7 MOS/KG (273-304)
[2018-12-01 07:06] LABS: Basophils # 0.1 10*3/uL (0.0-0.2); Basophils % 0.8 % (0.0-0.8); Eosinophils # 0.3 10*3/uL (0.0-0.87); Eosinophils % 2.8 % (0.00-10.9); Hematocrit 42.4 VOL% (35.7-47.0); Hemoglobin 12.8 GM/DL (12.0-16.0); Immature Granulocytes % 0.4 %; Immature Granulocytes Absolute 0.05 #; Lymphocytes # 2.4 10*3/uL (1.4-4.0); Lymphocytes % 21.1 % (21.3-54.2); Mean Corpuscular HGB Conc 30.2 GM/DL (32-36); Mean Corpuscular Volume 85.3 FL (87-102); Mean Platelet Volume 9.4 FL (9.6-12.0); Monocytes % 9.5 % (1.7-12.7); Neutrophils % 65.4 % (38.7-73.9); Platelet Count 340 T/CUMM (130-400); Red Blood Count 4.97 MC/CUMM (3.8-5.5); Red Cell Distribution Width 15.9 % (9.3-17.3); White Blood Count 11.5 T/CUMM (4-12)
[2018-12-01] MEDS: INSULIN REGULAR 100 UNIT/ML SUBCUT SCH ×4 (08:05→21:02)
[2018-12-01] MEDS: ENOXAPARIN 40 MG/0.4 ML SYRINGE SUBCUT SCH (09:31)
[2018-12-01] MEDS: POTASSIUM CHLORIDE 20 MEQ TABLET PO PRN ×3 (09:31→14:06)
[2018-12-01] MEDS: VANCOMYCIN INJ 1,250 MG in SODIUM CHLORIDE 0.9% 250 ML IV SCH (18:07)
[2018-12-01] MEDS: INSULIN GLARGINE 100 UNIT/ML SUBCUT SCH (21:02)
[2018-12-02] MEDS: AZTREONAM 2,000 MG in SYRINGE 1 EACH IV SCH ×3 (03:03→20:46)
[2018-12-02] MEDS: metroNIDAZOLE INJ 500 MG in PREMIX 1 EACH IV SCH ×3 (04:29→20:54)
[2018-12-02] MEDS: INSULIN REGULAR 100 UNIT/ML SUBCUT SCH ×4 (08:15→22:00)
[2018-12-02] MEDS: ENOXAPARIN 40 MG/0.4 ML SYRINGE SUBCUT SCH (09:25)
[2018-12-02] MEDS: VANCOMYCIN INJ 1,250 MG in SODIUM CHLORIDE 0.9% 250 ML IV SCH (17:25)
[2018-12-02] MEDS: INSULIN GLARGINE 100 UNIT/ML SUBCUT SCH (22:00)
[2018-12-03] MEDS: AZTREONAM 2,000 MG in SYRINGE 1 EACH IV SCH (02:36)
[2018-12-03] MEDS: metroNIDAZOLE INJ 500 MG in PREMIX 1 EACH IV SCH ×2 (05:37→12:27)
[2018-12-03] MEDS: INSULIN REGULAR 100 UNIT/ML SUBCUT SCH ×4 (07:49→23:26)
[2018-12-03] MEDS: ENOXAPARIN 40 MG/0.4 ML SYRINGE SUBCUT SCH (08:58)
[2018-12-03] MEDS ORDERED: AZTREONAM 2,000 MG in SYRINGE 1 EACH IV SCH (10:00)
[2018-12-03 10:30] LABS: Calcium 10.3 MG/DL (8.5-10.1); Osmolality,Calculated 285.4 MOS/KG (273-304)
[2018-12-03 10:37] LABS: Basophils # 0.1 10*3/uL (0.0-0.2); Basophils % 0.7 % (0.0-0.8); Eosinophils # 0.5 10*3/uL (0.0-0.87); Eosinophils % 3.8 % (0.00-10.9); Hematocrit 41.7 VOL% (35.7-47.0); Immature Granulocytes % 0.6 %; Immature Granulocytes Absolute 0.07 #; Lymphocytes # 2.2 10*3/uL (1.4-4.0); Lymphocytes % 18.4 % (21.3-54.2); Mean Corpuscular HGB Conc 29.7 GM/DL (32-36); Mean Corpuscular Volume 87.6 FL (87-102); Mean Platelet Volume 9.6 FL (9.6-12.0); Monocytes % 9.5 % (1.7-12.7); Platelet Count 342 T/CUMM (130-400); Red Blood Count 4.76 MC/CUMM (3.8-5.5); Red Cell Distribution Width 15.9 % (9.3-17.3)
[2018-12-03 10:43] LABS: Hemoglobin 12.4 GM/DL (12.0-16.0)
[2018-12-03] MEDS: SODIUM HYPOCHLORITE 0.25% IRRIG 473 ML BOTTLE TOP SCH (12:27)
[2018-12-03] MEDS: VANCOMYCIN INJ 1,250 MG in SODIUM CHLORIDE 0.9% 250 ML IV SCH (16:57)
[2018-12-03] MEDS: AZTREONAM 2,000 MG in SODIUM CHLORIDE 0.9% 100 ML IV SCH (18:06)
[2018-12-03] MEDS: INSULIN GLARGINE 100 UNIT/ML SUBCUT SCH (23:07)
[2018-12-04] MEDS: AZTREONAM 2,000 MG in SODIUM CHLORIDE 0.9% 100 ML IV SCH (03:22)
[2018-12-04] MEDS: ENOXAPARIN 40 MG/0.4 ML SYRINGE SUBCUT SCH (08:59)
[2018-12-04] MEDS: INSULIN REGULAR 100 UNIT/ML SUBCUT SCH ×4 (08:59→21:42)
[2018-12-04] MEDS: SODIUM HYPOCHLORITE 0.25% IRRIG 473 ML BOTTLE TOP SCH (09:00)
[2018-12-04] MEDS: ACETAMINOPHEN 325 MG TABLET PO PRN ×2 (09:58→21:45)
[2018-12-04] MEDS ORDERED: TUBERCULIN SKIN TEST 0.1 ML SYRINGE INTRADERM ONE (11:33)
[2018-12-04] MEDS ORDERED: AZTREONAM 2,000 MG in SYRINGE 1 EACH IV SCH (19:00)
[2018-12-04] MEDS: INSULIN GLARGINE 100 UNIT/ML SUBCUT SCH (21:42)
[2018-12-05] MEDS: ENOXAPARIN 40 MG/0.4 ML SYRINGE SUBCUT SCH (08:41)
[2018-12-05] MEDS: INSULIN REGULAR 100 UNIT/ML SUBCUT SCH ×2 (09:19→13:17)
[2018-12-05] MEDS: SODIUM HYPOCHLORITE 0.25% IRRIG 473 ML BOTTLE TOP SCH (13:40)
[2018-12-05 15:47] VITALS: BP 129/61
== END 2018-12-05 15:55 | DRG 638 ==
LOC: N.ED 20:06 → N.EDINP 11-30 00:33 → N.5E 11-30 01:33
PROVIDERS: ADMIT Internal Medicine; ATTEND Internal Medicine

== ENCOUNTER 2019-03-19 10:16 | Inpatient (IN) ==
[2019-03-19] MEDS ORDERED: SODIUM CHLORIDE 0.9% 500 ML IV STA (10:33)
[2019-03-19 11:15] LABS: Basophils % 0.3 % (0.0-0.8); Eosinophils % 0.3 % (0.00-10.9); Hemoglobin 13.7 GM/DL (12.0-16.0); Immature Granulocytes % 1.1 %; Immature Granulocytes Absolute 0.15 #; Lymphocytes # 1.5 10*3/uL (1.4-4.0); Lymphocytes % 11.3 % (21.3-54.2); Mean Corpuscular HGB Conc 31.9 GM/DL (32-36); Mean Corpuscular Volume 84.6 FL (87-102); Mean Platelet Volume 9.1 FL (9.6-12.0); Platelet Count 474 T/CUMM (130-400); Red Blood Count 5.08 MC/CUMM (3.8-5.5); Red Cell Distribution Width 14.8 % (9.3-17.3); White Blood Count 13.3 T/CUMM (4-12)
[2019-03-19 11:34] LABS: Apearance,Urine CLEAR (Clear); Bacteria,Urine Occasional /HPF (Few); Bilirubin,Urine Negative (Negative); Blood, Urine Negative (Negative); Glucose,Urine (UA) 150 mg/dL (Negative); Hyaline Casts,Urine 12 /LPF (0-3); Ketones,Urine Negative (Negative); Mucus,Urine Occasional /LPF (Occasional); Nitrite,Urine Negative (Negative); Protein,Urine Negative; RBC,Urine <1 /HPF (0-4); Squamous Epithelial Cell,Urine Occasional /HPF (0-10); Urine Color Yellow (Yellow); Urine Specific Gravity 1.013 (1.001-1.035); Urine Urobilinogen < 2.0 EU/DL (0.2-1.0); WBC,Urine 1 /HPF (0-6)
[2019-03-19 11:39] LABS: Albumin 2.9 G/DL (3.4-5.0); Bilirubin,Total 0.8 MG/DL (0.2-1.0); Calcium 10.5 MG/DL (8.5-10.1); Osmolality,Calculated 281.8 MOS/KG (273-304); Total Protein 8.2 G/DL (6.4-8.3)
[2019-03-19] MEDS ORDERED: SODIUM CHLORIDE 0.9% 1,000 ML IV STA (13:25)
[2019-03-19] MEDS ORDERED: DEXTROSE 10% 250 ML BAG IV PRN (13:47)
[2019-03-19] MEDS ORDERED: ONDANSETRON 4 MG/2 ML VIAL IV PRN (13:47)
[2019-03-19] MEDS ORDERED: GLUCAGON 1 MG VIAL IM PRN (13:47)
[2019-03-19] MEDS ORDERED: FUROSEMIDE 40 MG TABLET PO SCH (14:00)
[2019-03-19] MEDS ORDERED: ENOXAPARIN 40 MG/0.4 ML SYRINGE SUBCUT SCH (14:00)
[2019-03-19 14:31] LABS: Risk Ratio 2.91; Thyroid Stimulating Hormone 2.19 uIU/ml (0.358-3.74)
[2019-03-19] MEDS: SODIUM CHLORIDE 0.9% 1,000 ML IV SCH (15:05)
[2019-03-19] MEDS: DOCUSATE SODIUM 100 MG CAPSULE PO SCH ×2 (17:35→18:19)
[2019-03-19] MEDS: FERROUS SULFATE 325 MG TABLET PO SCH ×3 (17:35→21:14)
[2019-03-19] MEDS: ASPIRIN EC 81 MG TABLET PO SCH ×2 (17:35→18:19)
[2019-03-19] MEDS: CLOPIDOGREL 75 MG TABLET PO SCH ×2 (17:35→18:20)
[2019-03-19] MEDS: INSULIN REGULAR 100 UNIT/ML SUBCUT SCH ×2 (17:36→21:14)
[2019-03-19] MEDS: carvediloL 3.125 MG TABLET PO SCH ×2 (17:40→18:21)
[2019-03-19] MEDS: ATORVASTATIN 40 MG TABLET PO SCH (21:14)
[2019-03-20] MEDS: SODIUM CHLORIDE 0.9% 1,000 ML IV SCH ×2 (04:31→17:24)
[2019-03-20 05:02] LABS: Basophils % 0.4 % (0.0-0.8); Eosinophils # 0.3 10*3/uL (0.0-0.87); Eosinophils % 2.3 % (0.00-10.9); Hematocrit 37.6 VOL% (35.7-47.0); Hemoglobin 11.8 GM/DL (12.0-16.0); Immature Granulocytes % 0.6 %; Immature Granulocytes Absolute 0.07 #; Lymphocytes # 2.5 10*3/uL (1.4-4.0); Mean Corpuscular HGB Conc 31.4 GM/DL (32-36); Mean Corpuscular Volume 85.1 FL (87-102); Mean Platelet Volume 9.8 FL (9.6-12.0); Monocytes % 11.4 % (1.7-12.7); Neutrophils % 62.3 % (38.7-73.9); Platelet Count 409 T/CUMM (130-400); Red Blood Count 4.42 MC/CUMM (3.8-5.5); Red Cell Distribution Width 14.8 % (9.3-17.3)
[2019-03-20 05:08] LABS: Calcium 9.7 MG/DL (8.5-10.1); Osmolality,Calculated 281.4 MOS/KG (273-304)
[2019-03-20] MEDS: CLOPIDOGREL 75 MG TABLET PO SCH (09:26)
[2019-03-20] MEDS: DOCUSATE SODIUM 100 MG CAPSULE PO SCH (09:26)
[2019-03-20] MEDS: INSULIN REGULAR 100 UNIT/ML SUBCUT SCH ×4 (09:27→20:51)
[2019-03-20] MEDS: FERROUS SULFATE 325 MG TABLET PO SCH ×2 (09:27→20:08)
[2019-03-20] MEDS: carvediloL 3.125 MG TABLET PO SCH ×2 (09:27→17:03)
[2019-03-20] MEDS: PANTOPRAZOLE 40 MG TABLET PO SCH (09:27)
[2019-03-20] MEDS: ASPIRIN EC 81 MG TABLET PO SCH (09:27)
[2019-03-20] MEDS: ATORVASTATIN 40 MG TABLET PO SCH (20:08)
[2019-03-20] MEDS: MENTHOL/ZINC OXIDE OINT 71 GM JAR TOP SCH (20:08)
[2019-03-21] MEDS: SODIUM CHLORIDE 0.9% 1,000 ML IV SCH (05:36)
[2019-03-21 06:28] LABS: Basophils % 0.4 % (0.0-0.8); Eosinophils # 0.3 10*3/uL (0.0-0.87); Eosinophils % 3.2 % (0.00-10.9); Hematocrit 32.8 VOL% (35.7-47.0); Hemoglobin 10.3 GM/DL (12.0-16.0); Immature Granulocytes % 0.6 %; Immature Granulocytes Absolute 0.06 #; Lymphocytes # 3.3 10*3/uL (1.4-4.0); Lymphocytes % 30.6 % (21.3-54.2); Mean Corpuscular HGB Conc 31.4 GM/DL (32-36); Mean Corpuscular Volume 85.6 FL (87-102); Mean Platelet Volume 10.4 FL (9.6-12.0); Monocytes % 10.9 % (1.7-12.7); Neutrophils % 54.3 % (38.7-73.9); Platelet Count 365 T/CUMM (130-400); Red Blood Count 3.83 MC/CUMM (3.8-5.5); Red Cell Distribution Width 14.9 % (9.3-17.3); White Blood Count 10.7 T/CUMM (4-12)
[2019-03-21 06:45] LABS: Albumin 2.2 G/DL (3.4-5.0); Bilirubin,Total 0.8 MG/DL (0.2-1.0); Calcium 9.5 MG/DL (8.5-10.1); Osmolality,Calculated 281.1 MOS/KG (273-304)
[2019-03-21 06:46] LABS: Calcium 9.4 MG/DL (8.5-10.1)
[2019-03-21] MEDS: INSULIN REGULAR 100 UNIT/ML SUBCUT SCH ×4 (07:30→21:33)
[2019-03-21] MEDS: FERROUS SULFATE 325 MG TABLET PO SCH ×2 (09:06→21:33)
[2019-03-21] MEDS: ACETAMINOPHEN 325 MG TABLET PO PRN (09:06)
[2019-03-21] MEDS: ASPIRIN EC 81 MG TABLET PO SCH (09:06)
[2019-03-21] MEDS: CLOPIDOGREL 75 MG TABLET PO SCH (09:06)
[2019-03-21] MEDS: DOCUSATE SODIUM 100 MG CAPSULE PO SCH (09:06)
[2019-03-21] MEDS: PANTOPRAZOLE 40 MG TABLET PO SCH (09:06)
[2019-03-21] MEDS: MENTHOL/ZINC OXIDE OINT 71 GM JAR TOP SCH ×2 (09:09→21:34)
[2019-03-21] MEDS: carvediloL 3.125 MG TABLET PO SCH (12:12)
[2019-03-21] MEDS: carvediloL 6.25 MG TABLET PO SCH ×2 (14:39→17:20)
[2019-03-21] MEDS: NYSTATIN CREAM 15 GM TUBE TOP SCH ×2 (16:02→21:33)
[2019-03-21] MEDS: ATORVASTATIN 40 MG TABLET PO SCH (21:34)
[2019-03-22] MEDS: DOCUSATE SODIUM 100 MG CAPSULE PO SCH (08:45)
[2019-03-22] MEDS: FERROUS SULFATE 325 MG TABLET PO SCH (08:45)
[2019-03-22] MEDS: carvediloL 6.25 MG TABLET PO SCH ×2 (08:45→17:03)
[2019-03-22] MEDS: ASPIRIN EC 81 MG TABLET PO SCH (08:45)
[2019-03-22] MEDS: CLOPIDOGREL 75 MG TABLET PO SCH (08:45)
[2019-03-22] MEDS: ACETAMINOPHEN 325 MG TABLET PO PRN (08:45)
[2019-03-22] MEDS: PANTOPRAZOLE 40 MG TABLET PO SCH (08:45)
[2019-03-22] MEDS: SODIUM CHLORIDE 0.9% 1,000 ML IV SCH (08:47)
[2019-03-22] MEDS: MENTHOL/ZINC OXIDE OINT 71 GM JAR TOP SCH (08:49)
[2019-03-22] MEDS: INSULIN REGULAR 100 UNIT/ML SUBCUT SCH ×3 (08:50→17:03)
[2019-03-22] MEDS: NYSTATIN CREAM 15 GM TUBE TOP SCH ×2 (10:43→17:03)
[2019-03-22 15:14] VITALS: BP 152/80
== END 2019-03-22 17:07 | DRG 640 ==
LOC: EDUNIT# → EDBD → N.ED 10:16 → N.EDINP 14:06 → N.5E 14:49
PROVIDERS: ADMIT Internal Medicine; ATTEND Internal Medicine